=== PATIENT | female | born 1995 | race Caucasian/White ===

== ENCOUNTER 2025-08-05 05:25 | Emergency (ER) | payer OTHER ==
[~2025-08-05] VITALS: Ht 172.7 cm; Wt 72.7 kg
[2025-08-05] MEDS: RABIES VACCINE HUMAN 2.5 INTERNATIONAL UNITS/ML VIAL (IMOVAX) IM ONE (09:32)
[2025-08-05 10:15] VITALS: BP 114/88; TEMP 99.4; O2SAT 98
== END 2025-08-05 10:18 | disposition home or self-care (01) ==
LOC: M ED 05:25
DX: Z20.3 Contact with and (suspected) exposure to rabies (principal); Z29.14 Encounter for prophylactic rabies immune globulin; Z23 Encounter for immunization

== ENCOUNTER 2025-08-08 10:28 | Emergency (ER) | payer OTHER ==
[~2025-08-08] VITALS: Ht 172.7 cm; Wt 73.5 kg
[2025-08-08 10:30] VITALS: BP 125/70; TEMP 97.9; O2SAT 100
[2025-08-08] MEDS ORDERED: LO LTAB PO (10:43)
[2025-08-08] MEDS: RABIES VACCINE HUMAN 2.5 INTERNATIONAL UNITS/ML VIAL (IMOVAX) IM ONE (11:16)
== END 2025-08-08 11:27 | disposition home or self-care (01) ==
LOC: M ED 10:28
DX: Z20.3 Contact with and (suspected) exposure to rabies (principal); Z29.14 Encounter for prophylactic rabies immune globulin; Z23 Encounter for immunization; Z79.3 Long term (current) use of hormonal contraceptives